=== PATIENT | male | born 1980 | race Caucasian/White ===

== ENCOUNTER 2019-12-09 01:44 | Inpatient (IN) | payer MEDICAID, OTHER ==
[~2019-12-09] VITALS: Ht 162.6 cm; Wt 68.0 kg
[2019-12-09] MEDS ORDERED: SODIUM CHLORIDE 0.9% 1,000 ML IV ONE (02:23)
[2019-12-09] MEDS ORDERED: PANTOPRAZOLE SODIUM 40 MG/VIAL IV STA (02:23)
[2019-12-09] MEDS ORDERED: ONDANSETRON HCL 4MG/2ML INJ IV ONE (02:30)
[2019-12-09 02:54] LABS: BASOPHILS % 0.2 % (0.0-2.0); EOSINOPHILS % 0.1 % (0.0-5.0); HEMATOCRIT. 25.3 % (42.0-52.0); HEMOGLOBIN. 8.8 g/dL (14.0-18.0); MEAN CORPUSCULAR HEMOGLOBIN 31.9 pg (28.0-32.0); MEAN CORPUSCULAR VOLUME 91.1 fL (80.0-94.0); MEAN PLATELET VOLUME 8.7 fl (7.4-10.4); MONOCYTES % 4.5 % (2.0-8.0); NEUTROPHILS % 85.2 % (40.0-76.0); PLATELET 191 x1000/uL (130-400); RED BLOOD CELL COUNT 2.78 mill/uL (4.7-6.1)
[2019-12-09 02:57] LABS: CHLORIDE 108 mEq/L (98-107)
[2019-12-09 03:00] LABS: INR 1.2; PROTHROMBIN TIME 12.9 sec (9.6-11.0)
[2019-12-09] MEDS: PANTOPRAZOLE SODIUM 40 MG/VIAL IV SCH ×3 (09:00→21:15)
[2019-12-09] MEDS ORDERED: ONDANSETRON HCL 4MG/2ML INJ IV PRN (09:00)
[2019-12-09] MEDS ORDERED: ACETAMINOPHEN 325MG TABLET PO PRN (09:00)
[2019-12-09 09:26] LABS: *AMPHETAMINES SCREEN URINE NEGATIVE (NEGATIVE); *BARBITURATES SCREEN URINE NEGATIVE (NEGATIVE); *BENZODIAZEPINES SCREEN URINE NEGATIVE (NEGATIVE)
[2019-12-09 09:27] LABS: *COCAINE SCREEN URINE NEGATIVE (NEGATIVE); CANNABINOID URINE SCREEN NEGATIVE (NEGATIVE); METHADONE URINE SCREEN NEGATIVE (NEGATIVE); OPIATES URINE SCREEN NEGATIVE (NEGATIVE); PHENCYCLIDINE URINE SCREEN NEGATIVE (NEGATIVE)
[2019-12-09 11:03] LABS: HEMATOCRIT 23.8 % (42.0-52.0); HEMOGLOBIN 8.3 g/dL (14.0-18.0)
[2019-12-09 11:08] LABS: TOTAL IRON BINDING CAPACITY 268 ug/dL (250-450)
[2019-12-09 11:39] LABS: FERRITIN 167 ng/mL (22-322)
[2019-12-09 11:47] LABS: FOLIC ACID (FOLATE) SERUM > 20.00 ng/mL (>5.38); VITAMIN B12 SERUM > 2000.0 pg/mL (211-911)
[2019-12-09 16:45] VITALS: BP_SYST 122; BP_SYST 133; BP_DIAS 82
[2019-12-09 20:00] VITALS: BP 102/67
[2019-12-10] VITALS: BP 97/58
[2019-12-10 04:00] VITALS: BP 90/54
[2019-12-10 06:23] LABS: BASOPHILS % 0.6 % (0.0-2.0); EOSINOPHILS % 1.1 % (0.0-5.0); HEMATOCRIT. 22.5 % (42.0-52.0); HEMOGLOBIN. 7.7 g/dL (14.0-18.0); MEAN CORPUSCULAR HEMOGLOBIN 31.5 pg (28.0-32.0); MEAN CORPUSCULAR VOLUME 91.4 fL (80.0-94.0); MEAN PLATELET VOLUME 8.6 fl (7.4-10.4); MONOCYTES % 11.7 % (2.0-8.0); NEUTROPHILS % 49.6 % (40.0-76.0); PLATELET 190 x1000/uL (130-400); RED BLOOD CELL COUNT 2.46 mill/uL (4.7-6.1); RED CELL DISTRIBUTION WIDTH 14.4 % (11.6-14.6)
[2019-12-10 06:49] LABS: CHLORIDE 108 mEq/L (98-107)
[2019-12-10 08:00] VITALS: BP 100/61
[2019-12-10] MEDS: PANTOPRAZOLE SODIUM 40 MG/VIAL IV SCH (08:44)
[2019-12-10 12:00] VITALS: BP 107/64
[2019-12-10 12:23] VITALS: BP 95/64
[2019-12-10 16:00] VITALS: BP 95/64
== END 2019-12-10 17:33 | disposition home or self-care (01) | DRG 253 ==
LOC: ER 01:44 → EDBEDREQTM 03:39 → EDBEDREQ 03:39 → 7WST 03:42 → EDBEDREQ 03:46 → ENRESERV 15:57
PROVIDERS: ADMIT Internal Medicine; ATTEND Internal Medicine
DX: K92.0 Hematemesis (principal); R04.0 Epistaxis; U07.1 COVID-19; E43 Unspecified severe protein-calorie malnutrition; E87.8 Other disorders of electrolyte and fluid balance, not elsewhere classified; D64.9 Anemia, unspecified; E11.9 Type 2 diabetes mellitus without complications; Z86.19 Personal history of other infectious and parasitic diseases
CPT/HCPCS: 36415; 71045; 80048; 80053; 80305; 82607; 82728; 82746; 82962; 83036; 83540; 83550; 85014; 85018; 85025; 86850; 86900; 93005; 99291; C9113; J2405; J7030; U0003-CS